=== PATIENT | female | born 1945 | race Caucasian/White ===

== ENCOUNTER → 2023-06-02 12:50 | Outpatient (REF) | payer MEDICARE, OTHER, SELFPAY | LOC: DHVS 12:50 | PROVIDERS: ATTENDING PHYSICIAN Surgery Vascular Surgery; FAMILY PHYSICIAN Internal Medicine | DX: I65.23 Occlusion and stenosis of bilateral carotid arteries (principal) | CPT/HCPCS: 93880 ==

== ENCOUNTER → 2023-12-01 09:52 | Outpatient (REF) | payer MEDICARE, OTHER, SELFPAY | LOC: RAD 09:52 | PROVIDERS: ATTENDING PHYSICIAN Registered Nurse; FAMILY PHYSICIAN Internal Medicine | DX: I65.23 Occlusion and stenosis of bilateral carotid arteries (principal) | CPT/HCPCS: 93880 ==

== ENCOUNTER 2024-08-30 14:02 | Emergency (ER) | payer MEDICARE, OTHER, SELFPAY ==
[2024-08-30 14:03] VITALS: BMI 26.6
[2024-08-30 14:07] VITALS: BP 97/68
[2024-08-30 16:28] VITALS: BP 135/66
--- NOTE | 2024-08-30 16:41 | ED.GENMED ---
History of Present Illness
General
Chief Complaint: Headache
Time Seen by Provider: 08/30/24 16:01
History of Present Illness
History of Present Illness:
79-year-old female with history of DVT and PE on Eliquis presenting to the emergency department for headache. Patient reports 3 days ago she was in the shower and she slipped and struck her head on the tile. Since then has had a nagging headache.
Also notes 2 additional lower mechanism head injuries since the initial injury. Denies loss of consciousness. Does report an episode of blurred vision yesterday. Reports history of concussion in the past. Denies weakness or numbness to her
extremities. Denies fever. Denies additional injuries. She has not been taking any medications for the headache. Denies additional acute medical complaints
Past History
Past History
ED Past Medical History: Arrthythmia (SVT), Asthma, Cancer, GERD, Hypothyroidism and Other (Bronchiolitis, pulmonary embolism, traumatic brain injury, sleep apnea, peripheral vascular disease, kidney stones, GIST tumor)
ED Past Surgical History: Cholecystectomy, Gynecological and Other (Surg for sleep apnea, Carpal tunnel, resection of small bowel tumor. Total time of hysterectomy with bilateral salpingo-oophorectomy. Carotid endarterectomy)
Social History
Tobacco: Non-smoker
Alcohol: None
Drug: None
Personal:
Living: with family
Employment: Employed
Family History
Family History: Diabetes and Other ([place] bladder cancer CHF and her mother, diabetes in a grandfather, pancreatic cancer in her father)
Phy Exam
Physical Exam
Physical Exam:
General: Well-appearing, no clinical signs of dehydration, nontoxic and in no acute distress
HEENT: protecting airway, pupils equal and reactive
Neck: appears supple
CV: Normal heart rate, regular rhythm
Resp: No accessory muscle use, no increased work of breathing
Abd: No distention
Extremities: No deformities, no swelling
Neuro: alert, no focal neurologic deficit
: deferred
Rectal: deferred
Psych: Normal affect
Skin: Intact
Course
Orders/Labs/Results
Orders:
Orders
08/30/24 14:11
CT Head W/o Iv Contrast Urgent
Comment:
Reason For Exam: fall
Vital Signs
Initial and Last Documented VS:
Initial Vital Signs
Temp Pulse Resp BP Pulse Ox
98.0 F 93 16 97/68 98
08/30/24 14:07 08/30/24 14:07 08/30/24 14:07 08/30/24 14:07 08/30/24 14:07
Last Documented Vital Signs
Temp Pulse Resp BP Pulse Ox
98.0 F 72 18 135/66 98
08/30/24 14:07 08/30/24 16:28 08/30/24 16:28 08/30/24 16:28 08/30/24 16:28
MDM/Problems Addressed
MDM/Problems Addressed:
79-year-old female with history of DVT and PE on Eliquis presenting with headache after head injury. Vital signs are normal.
On exam patient resting comfortably, no acute distress or discomfort. No focal neurologic deficits. No physical signs of head trauma. However given patient's report of headache, anticoagulation status and mechanism of injury, will plan for CT
brain imaging to rule out intracranial abnormality.
CT brain is negative, no sign of significant hemorrhage or traumatic injury. Suspect mild postconcussive symptoms. Feel stable for discharge with continued outpatient supportive therapy. Return precautions discussed and patient verbalized
understanding
*Critical Care Note
Total Time (30-74mins, 75-104mins- exclusive of procedures): Not Applicable
ED Attending Note
-
Portions of this chart may have been created with voice recognition software.� Occasional wrong word or��sound alike� substitutions may have occurred due to the inherent limitations of voice recognition software.
Discharge Plan
Departure
Prescriptions:
No Action
ascorbic acid (vitamin C) [Vitamin C] 1,000 mg Tablet
1 g PO DAILY
L-Carnitine 500 mg Tablet
1,000 mg PO DAILY
garlic 600 mg Capsule
1,200 mg PO BID
chromium picolinate 200 mcg Tablet
200 mcg PO DAILY
vitamin B complex Capsule
1 cap PO DAILY
magnesium 200 mg Tablet
200 mg PO DAILY
taurine 1,000 mg Capsule
1,000 mg PO DAILY
coQ10 (ubiquinol) 100 mg Capsule
100 mg PO DAILY
ribose 20 kcal/5 gram Powder
20 kcal PO DAILY
cyanocobalamin (vitamin B-12) 1,000 mcg Capsule
1,000 mcg PO DAILY
Cod Liver Oil plus Shey and D3 1,250 unit-130 unit-530 mg Capsule
3 cap PO DAILY
vitamin K2 45 mcg Capsule
45 mcg PO DAILY
astaxanthin 12 mg Capsule
12 mg PO DAILY
Curcumin 750 mg capsule
750 cap PO DAILY
Flexcin 1 CAPSULE
2 cap PO DAILY
Prevagen 1 CAPSULE
1 cap PO DAILY
Probiotic 1 TABLET tablet
1 tab PO DAILY
grape seed extract 1 CAPSULE capsule
1 cap PO DAILY
milk thistle 500 mg Capsule
750 mg PO DAILY
cholecalciferol (vitamin D3) [Vitamin D3] 125 mcg (5,000 unit) Tablet
250 mcg PO DAILY
aspirin 81 mg Capsule
81 mg PO DAILY
pantoprazole [Protonix] 40 mg tablet,delayed release (DR/EC)
40 mg PO DAILY Qty: 20 0RF
Referrals:
Tristan Fonseca MD [Family Provider] -
Interventions
Interventions:
*Risk Screen - Suicide Last Done: 08/30/24 14:07
*General Assessment Last Done: 08/30/24 14:07
*Neglect/Abuse Screening Last Done: 08/30/24 14:07
*ED COVID-19 Vaccine History Last Done: 08/30/24 14:07
ED- Neurological Assessment Last Done: 08/30/24 16:11
Discharge Date and Time
Print Language: ERITREAN
--- NOTE | 2024-08-30 17:00 | EDRN ---
Pt. states 'about a month ago, I had some soap on my feet in the tub and slipped forward and hit my head'. Pt. denied LOC, does take blood thinners.
== END 2024-08-30 17:25 | disposition home or self-care (01) ==
LOC: EMR 14:02
PROVIDERS: EMERGENCY PHYSICIAN Student in an Organized Health Care Education/Training Program; FAMILY PHYSICIAN Internal Medicine
DX: S09.90XA Unspecified injury of head, initial encounter (principal); W01.0XXA Fall on same level from slipping, tripping and stumbling without subsequent striking against object, initial encounter; E03.9 Hypothyroidism, unspecified; J45.909 Unspecified asthma, uncomplicated; Z86.711 Personal history of pulmonary embolism; Z86.718 Personal history of other venous thrombosis and embolism; Z79.01 Long term (current) use of anticoagulants; Z90.710 Acquired absence of both cervix and uterus; Z87.820 Personal history of traumatic brain injury; Z90.49 Acquired absence of other specified parts of digestive tract
CPT/HCPCS: 99284; 70450

== ENCOUNTER → 2024-12-13 10:55 | Outpatient (REF) | payer MEDICARE, OTHER, SELFPAY | LOC: RAD 10:55 | PROVIDERS: ATTENDING PHYSICIAN Registered Nurse; FAMILY PHYSICIAN Internal Medicine | DX: I65.23 Occlusion and stenosis of bilateral carotid arteries (principal) | CPT/HCPCS: 93880 ==